=== PATIENT | female | born 1995 | race African-American/Black ===

== ENCOUNTER 2016-11-23 18:18 | Emergency (ER) | payer MEDICAID ==
[~2016-11-23] VITALS: Ht 170.2 cm; Wt 80.7 kg
[2016-11-23 19:53] LABS: Urine Bilirubin Negative (Negative); Urine Blood Negative /uL (Negative); Urine Color Yellow (Yellow); Urine Glucose Normal (Normal); Urine Ketone TRACE (Negative); Urine Mucus FEW (None Seen); Urine Nitrite Negative (Negative); Urine RBC 1 /hpf (0 - 4); Urine Squamous Epithelial Cell MANY /hpf (<5)
[2016-11-23 20:07] LABS: Albumin 3.8 g/dL (3.4-5.0); BUN/Creatinine Ratio 19.7; Bilirubin, Total 0.1 mg/dL (0.2-1.0); Calcium 8.7 mg/dL (8.5-10.1); Potassium 3.6 mmol/L (3.5-5.1); Total Protein 7.6 g/dL (6.4-8.2)
[2016-11-23 20:09] LABS: Basophils # (auto) 0 uL; Basophils % (auto) 0.7 % (0.0-2.0); Eosinophils # (auto) 0.1 uL; Eosinophils % (auto) 3.1 % (0.0-7.0); Hemoglobin 13.4 g/dL (12.2-16.2); Lymphocytes # (auto) 1.2 uL; Lymphocytes % (auto) 30.4 % (10.0-50.0); Mean Corpuscular Hemoglobin 27.3 pg (28.0-32.0); Mean Corpuscular Hgb Conc. 32.6 g/dL (32.0-36.0); Mean Corpuscular Volume 83.5 fL (80.0-100.0); Mean Platelet Volume 10.5 fL (7.4-10.4); Monocytes # (auto) 0.6 uL; Monocytes % (auto) 13.5 % (0.0-12.0); Neutrophils # (auto) 2.1 uL; Neutrophils % (auto) 52.3 % (37.0-80.0); Platelet Count (auto) 237 10^3/uL (140-450); Red Cell Distribution Width 13.1 % (11.6-16.0); White Blood Cell 4.1 10^3/uL (4.4-10.8)
[2016-11-24] MEDS ORDERED: NALBUPHINE HCL 10 MG/1ml INJECTION IV ONE (01:15)
[2016-11-24 05:02] VITALS: BP 132/62
== END 2016-11-24 05:40 | disposition home or self-care (01) ==
LOC: ER 18:24
DX: O26.891 Other specified pregnancy related conditions, first trimester (principal); O99.511 Diseases of the respiratory system complicating pregnancy, first trimester; J45.909 Unspecified asthma, uncomplicated; Z3A.01 Less than 8 weeks gestation of pregnancy
CPT/HCPCS: 36415; 76801; 76817; 80053; 81001; 81025; 84702; 85025; 85049; 96374; 99285; J2300

== ENCOUNTER 2017-01-20 07:08 | Emergency (ER) | payer MEDICAID ==
[~2017-01-20] VITALS: Ht 170.2 cm; Wt 81.2 kg
[2017-01-20 07:21] VITALS: BP 128/81
== END 2017-01-20 07:53 | disposition home or self-care (01) ==
LOC: ER 07:08
DX: J06.9 Acute upper respiratory infection, unspecified (principal); H66.91 Otitis media, unspecified, right ear; J45.909 Unspecified asthma, uncomplicated; R51 Headache

== ENCOUNTER 2017-03-10 13:59 | Emergency (ER) | payer MEDICAID ==
[~2017-03-10] VITALS: Ht 170.2 cm; Wt 83.2 kg
[2017-03-10 14:55] VITALS: BP 152/94
== END 2017-03-10 15:51 | disposition home or self-care (01) ==
LOC: ER 13:59
DX: N76.0 Acute vaginitis (principal); J45.909 Unspecified asthma, uncomplicated

== ENCOUNTER 2018-01-10 19:48 | Emergency (ER) | payer SELFPAY ==
[~2018-01-10] VITALS: Ht 170.2 cm; Wt 65.8 kg
[2018-01-10 20:44] VITALS: BP 143/94
[2018-01-10 21:01] LABS: Urine Bacteria NONE SEEN /hpf (None Seen); Urine Blood Negative /uL (Negative); Urine Mucus FEW (None Seen); Urine Specific Gravity 1.035 (1.001-1.035); Urine WBC 1 /hpf (0 - 5)
== END 2018-01-11 00:52 | disposition home or self-care (01) ==
LOC: ER 19:48
DX: N76.0 Acute vaginitis (principal); R51 Headache; J45.909 Unspecified asthma, uncomplicated
CPT/HCPCS: 81001; 81025

== ENCOUNTER 2018-06-10 20:29 | Observation (INO) | payer MEDICAID ==
[~2018-06-10] VITALS: Ht 170.2 cm; Wt 85.7 kg
[2018-06-10 21:12] LABS: Basophils # (auto) 0.1 uL; Basophils % (auto) 1.2 % (0.0-2.0); Eosinophils # (auto) 0.3 uL; Eosinophils % (auto) 4.6 % (0.0-7.0); Hemoglobin 12.3 g/dL (12.2-16.2); Lymphocytes # (auto) 1.8 uL; Lymphocytes % (auto) 24.3 % (10.0-50.0); Mean Corpuscular Hemoglobin 28.6 pg (28.0-32.0); Mean Corpuscular Hgb Conc. 33.2 g/dL (32.0-36.0); Mean Corpuscular Volume 86.2 fL (80.0-100.0); Monocytes # (auto) 0.6 uL; Monocytes % (auto) 8.4 % (0.0-12.0); Neutrophils # (auto) 4.5 uL; Neutrophils % (auto) 61.5 % (37.0-80.0); Platelet Count (auto) 229 10^3/uL (140-450); Red Blood Cells 4.29 10^6/uL (4.0-5.20); White Blood Cell 7.3 10^3/uL (4.4-10.8)
[2018-06-10 21:15] LABS: Urine Bacteria NONE SEEN /hpf (None Seen); Urine Blood Negative /uL (Negative); Urine Specific Gravity 1.013 (1.001-1.035); Urine WBC <1 /hpf (0 - 5)
[2018-06-10 21:30] LABS: Albumin 3.8 g/dL (3.4-5.0); BUN/Creatinine Ratio 11.8; Calcium 8.5 mg/dL (8.5-10.1); Potassium 3.4 mmol/L (3.5-5.1)
[2018-06-10 21:33] LABS: Bilirubin, Total 0.2 mg/dL (0.2-1.0); Total Protein 7.3 g/dL (6.4-8.2)
[2018-06-11 01:37] VITALS: BP 114/56
== END 2018-06-11 03:07 | disposition home or self-care (01) | DRG 111 ==
LOC: ER 20:29 → OVERFLOW 20:30 → ER 06-11 01:55
PROVIDERS: ADMIT Emergency Medicine; ATTEND Emergency Medicine
DX: R42 Dizziness and giddiness (principal); G43.A0 Cyclical vomiting, in migraine, not intractable; J45.909 Unspecified asthma, uncomplicated
CPT/HCPCS: 36415; 76801; 76817; 80053; 80320; 81001; 81025; 84702; 85025; 99285; G0378

== ENCOUNTER 2019-03-21 01:45 | Emergency (ER) | payer MEDICAID ==
[~2019-03-21] VITALS: Ht 170.2 cm; Wt 74.8 kg
[2019-03-21] MEDS ORDERED: ALBUTEROL SULF 2.5 MG/0.5ML(0.5%) NEB SOLN NEB ONE (03:30)
[2019-03-21] MEDS ORDERED: methylPREDNISolone SOD SUCC 125 MG/2 ML VL IM ONE (03:30)
[2019-03-21] MEDS ORDERED: IPRATROPIUM BROM 0.5 MG/2.5ML INH SOL NEB ONE (03:30)
[2019-03-21 03:45] VITALS: BP 147/91
== END 2019-03-21 04:43 | disposition home or self-care (01) ==
LOC: ER 01:46
DX: J45.901 Unspecified asthma with (acute) exacerbation (principal); J06.9 Acute upper respiratory infection, unspecified; T50.905A Adverse effect of unspecified drugs, medicaments and biological substances, initial encounter; Y92.89 Other specified places as the place of occurrence of the external cause
CPT/HCPCS: 94644; 96372; 99285; J2930; J7611; J7644

== ENCOUNTER 2019-04-26 21:44 | Emergency (ER) | payer MEDICAID ==
[~2019-04-26] VITALS: Ht 170.2 cm; Wt 78.9 kg
[2019-04-26 21:51] VITALS: BP 132/74
[2019-04-26 22:19] LABS: Urine Bacteria FEW /hpf (None Seen); Urine Blood 3+ /uL (Negative); Urine Mucus FEW (None Seen); Urine Specific Gravity 1.025 (1.001-1.035); Urine WBC 5 /hpf (0 - 5)
[2019-04-27] MEDS ORDERED: AZITHROMYCIN 250 MG TAB PO ONE
[2019-04-27] MEDS ORDERED: cefTRIAXone SOD 1,000 MG VL IM ONE
[2019-04-27] MEDS ORDERED: PHENAZOPYRIDINE HCL 100 MG TAB PO ONE
== END 2019-04-27 03:44 | disposition home or self-care (01) ==
LOC: ER 21:45
DX: N39.0 Urinary tract infection, site not specified (principal); J45.909 Unspecified asthma, uncomplicated
CPT/HCPCS: 81001; 81025; 96372; 99283; J0696

== ENCOUNTER 2021-04-26 03:36 | Emergency (ER) | payer MEDICAID ==
[~2021-04-26] VITALS: Ht 170.2 cm; Wt 84.4 kg
[2021-04-26] MEDS ORDERED: HYDROcodone-ACET 5/325MG TAB PO ONE (09:45)
[2021-04-26] MEDS ORDERED: ONDANSETRON HCL 4 MG/2 ML VIAL IV ONE (09:45)
[2021-04-26] MEDS ORDERED: ONDANSETRON ODT 4 MG TAB PO ONE (09:45)
[2021-04-26] MEDS ORDERED: fentaNYL CITRATE 100 MCG/2 ML VL IV ONE (09:45)
[2021-04-26] MEDS ORDERED: HYDROcodone-ACET 10/325MG TAB PO ONE (09:45)
[2021-04-26 15:00] VITALS: BP 108/65
== END 2021-04-26 15:09 | disposition home or self-care (01) ==
LOC: ER 03:37
DX: S70.312A Abrasion, left thigh, initial encounter (principal); J45.909 Unspecified asthma, uncomplicated; R20.0 Anesthesia of skin; V43.52XA Car driver injured in collision with other type car in traffic accident, initial encounter; Y93.89 Activity, other specified; Y92.89 Other specified places as the place of occurrence of the external cause; Y99.8 Other external cause status
CPT/HCPCS: 70450; 72125; 72170; 73030; 73070; 73552; 99285; Q0162